=== PATIENT | male | born 1965 | race Caucasian/White ===

== ENCOUNTER 2020-09-01 08:37 | Day surgery (SDC) | payer OTHER ==
[~2020-09-01] VITALS: Ht 193 cm; Wt 69.9 kg
[2020-09-01] MEDS ORDERED: diphenhydrAMINE 50 MG/ML VIAL ONE (11:31)
[2020-09-01] MEDS ORDERED: MIDAZOLAM 5 MG/5 ML VIAL ONE (11:32)
[2020-09-01] MEDS ORDERED: fentaNYL citrate 0.05 MG/ML VIAL ONE (11:32)
[2020-09-01] MEDS ORDERED: LIDOCAINE 2% 100 MG/5 ML UJET TP ONE ×2 (11:32→11:55)
[2020-09-01] MEDS ORDERED: MIDAZOLAM 2 MG/2 ML VIAL IVP ONE (11:55)
[2020-09-01] MEDS ORDERED: fentaNYL citrate 0.05 MG/ML VIAL IVP ONE (11:55)
== END 2020-09-01 12:40 | disposition home or self-care (01) ==
LOC: MDS 08:37 → MMU 08:38 → MDS 12:40
PROVIDERS: ATTEND Internal Medicine Gastroenterology
DX: Z12.11 Encounter for screening for malignant neoplasm of colon (principal); Z79.899 Other long term (current) drug therapy
CPT/HCPCS: 45378; J2250; J3010; J1200

== ENCOUNTER 2020-09-29 07:47 | Day surgery (SDC) | payer OTHER ==
[~2020-09-29] VITALS: Ht 162.6 cm; Wt 69.0 kg
[2020-09-29] MEDS ORDERED: diphenhydrAMINE 50 MG/ML VIAL ONE (08:14)
[2020-09-29] MEDS ORDERED: fentaNYL citrate 0.05 MG/ML VIAL ONE (08:14)
[2020-09-29] MEDS ORDERED: MIDAZOLAM 5 MG/5 ML VIAL ONE (08:15)
[2020-09-29] MEDS ORDERED: MIDAZOLAM 2 MG/2 ML VIAL IVP ONE (08:55)
[2020-09-29] MEDS ORDERED: fentaNYL citrate 0.05 MG/ML VIAL IVP ONE (08:55)
== END 2020-09-29 09:56 | disposition home or self-care (01) ==
LOC: MDS 07:47 → MMU 07:47 → MDS 09:56
PROVIDERS: ATTEND Internal Medicine Gastroenterology
DX: K21.9 Gastro-esophageal reflux disease without esophagitis (principal); K30 Functional dyspepsia; K31.9 Disease of stomach and duodenum, unspecified; Z79.899 Other long term (current) drug therapy
CPT/HCPCS: 43239; 88305; 88312; 88313; 88342; J2250; J3010; J1200